=== PATIENT | male | born 1970 | race African-American/Black ===

== ENCOUNTER 2017-05-12 22:36 | Emergency (ER) | payer MEDICAID ==
[~2017-05-12] VITALS: Ht 188 cm; Wt 91.0 kg
[2017-05-13] MEDS: OXYCODONE HCL/ACETAMINOPHEN 5/325MG TABLET PO ONE (08:33)
[2017-05-13 08:34] VITALS: BP 130/90
== END 2017-05-13 08:40 | disposition home or self-care (01) ==
LOC: ER 23:04
DX: M54.5 Low back pain (principal); F17.200 Nicotine dependence, unspecified, uncomplicated
CPT/HCPCS: 99283